=== PATIENT | female | born 1990 | race Caucasian/White ===

== ENCOUNTER 2018-12-15 10:13 | Day surgery (SDC) | payer OTHER ==
[2018-12-14 09:56] VITALS: BMI 21.2
[2018-12-15 13:46] VITALS: TEMP 97.9
[2018-12-15 14:07] VITALS: BP 107/68; PULSE 59
--- NOTE | 2018-12-20 15:52 | PATH ---
Surgical Pathology Report Patient Name: LOYDA ABAD [facility]. Rec. #: [id number] /Age/Gender: 1990 (Age: 28) / F Account: [id number] Location: [facility] Taken: 12/15/2018 Received: 12/16/2018 Reported: 12/20/2018 Physicians: Xochitl Turk M.D. Specimen(s) Received A: SECOND PORTION DUODENUM B: ANTRUM C: GE JUNCTION Clinical History Abdominal pain Postoperative diagnosis: Gastritis, hemorrhoids Final Diagnosis A. DUODENUM, SECOND PORTION, BIOPSY: DUODENAL MUCOSA WITH SMALL LYMPHOID AGGREGATE AND PRESERVED VILLOUS ARCHITECTURE. B. STOMACH, ANTRUM, BIOPSY: SCANT SUPERFICIAL FRAGMENTS OF GASTRIC MUCOSA WITHOUT SIGNIFICANT PATHOLOGIC FINDINGS. IMMUNOHISTOCHEMICAL STAIN FOR H. PYLORI IS NEGATIVE. DEEPER LEVELS HAVE BEEN EXAMINED. C. GE JUNCTION, BIOPSY: SQUAMOCOLUMNAR MUCOSA WITH MODERATE CHRONIC INFLAMMATION AND CHANGES OF MODERATE REFLUX ESOPHAGITIS. NO INTESTINAL METAPLASIA OR DYSPLASIA IDENTIFIED. Electronically Signed Xochitl Beebe M.D. Gross Description A. Received in formalin, labeled "second portion of duodenum biopsy" are 2 lr, irregular portions of soft tissue measuring 0.2 and 0.6 cm. in greatest dimension. The specimens are submitted in toto in one cassette. B. Received in formalin, labeled "antrum biopsy" is a lr, irregular portion of soft tissue measuring 0.2 to cm. in greatest dimension. The specimen is submitted in toto in one cassette. C. Received in formalin, labeled "GE junction biopsy" are 3 lr, irregular portions of soft tissue ranging from 0.1-0.4 cm. in greatest dimension. The specimens are submitted in toto in one cassette. 12/17/2018 [facility]2018
== END 2018-12-15 14:07 | disposition home or self-care (01) ==
LOC: FASU-ENDO 10:13
PROVIDERS: ATTEND Internal Medicine Gastroenterology
PROC: 0DB68ZX Excision of Stomach, Via Natural or Artificial Opening Endoscopic, Diagnostic (ICD-10-PCS; 2018-12-15)
PROC: 0DB58ZX Excision of Esophagus, Via Natural or Artificial Opening Endoscopic, Diagnostic (ICD-10-PCS; 2018-12-15)
PROC: 0DB98ZX Excision of Duodenum, Via Natural or Artificial Opening Endoscopic, Diagnostic (ICD-10-PCS; principal; 2018-12-15 13:02)
DX: K29.70 Gastritis, unspecified, without bleeding (principal); K31.9 Disease of stomach and duodenum, unspecified
CPT/HCPCS: 84703; 88305-TC; 88342-TC